=== PATIENT | female | born 1945 | race Native Hawaiian/Other Pacific Islander ===

== ENCOUNTER 2018-03-05 08:45 | Outpatient (CLI) | payer OTHER, MEDICARE | END 2018-03-05 19:30 | disposition home or self-care (01) | LOC: MAMMO 08:45 | DX: Z12.31 Encounter for screening mammogram for malignant neoplasm of breast (principal) ==

== ENCOUNTER 2019-05-31 15:07 | Outpatient (CLI) | payer OTHER, MEDICARE | END 2019-05-31 21:11 | disposition home or self-care (01) | LOC: MAMMO 15:07 | DX: Z12.31 Encounter for screening mammogram for malignant neoplasm of breast (principal) ==

== ENCOUNTER 2020-11-10 09:20 | Outpatient (CLI) | payer OTHER | END 2020-11-10 21:47 | disposition home or self-care (01) | LOC: RAD 09:20 | PROVIDERS: ATTEND Orthopaedic Surgery Orthopaedic Surgery of the Spine | DX: M54.2 Cervicalgia (principal); M54.5 Low back pain ==

== ENCOUNTER 2020-11-24 09:56 | Outpatient (CLI) | payer OTHER | END 2020-11-24 22:40 | disposition home or self-care (01) | LOC: LABW 09:56 | PROVIDERS: ATTEND Nurse Practitioner Family | DX: R19.7 Diarrhea, unspecified (principal); R10.84 Generalized abdominal pain | CPT/HCPCS: 82272; 83630; 87015; 87045; 87324; 87328; 87329; 87449; 87899 ==

== ENCOUNTER 2021-12-07 10:47 | Outpatient (CLI) | payer OTHER | END 2021-12-07 19:27 | disposition home or self-care (01) | LOC: RAD 10:47 | PROVIDERS: ATTEND Internal Medicine | DX: R05.9 Cough, unspecified (principal) ==